=== PATIENT | female | born 1955 | race Two or more races ===

== ENCOUNTER 2019-07-21 13:11 | Outpatient (CLI) | payer BC ==
[2019-07-21] MEDS ORDERED: OMNIPAQUE 350 MG/ML, 100ML BOTTLE ONE (13:55)
== END 2019-07-21 23:59 | disposition home or self-care (01) ==
LOC: CFH 13:11
PROVIDERS: ATTEND Family Medicine
DX: R06.00 Dyspnea, unspecified (principal); M48.54XA Collapsed vertebra, not elsewhere classified, thoracic region, initial encounter for fracture
CPT/HCPCS: 71275; 82565; Q9967

== ENCOUNTER 2019-08-10 08:36 | Outpatient (CLI) | payer BC | END 2019-08-10 23:59 | disposition home or self-care (01) | LOC: CARD 08:36 | PROVIDERS: ATTEND Family Medicine | DX: R07.9 Chest pain, unspecified (principal) | CPT/HCPCS: 93017; 93350 ==